=== PATIENT | female | born 1970 | race African-American/Black ===

== ENCOUNTER 2017-01-03 07:32 | Inpatient (IN) | payer MEDICAID, OTHER ==
[~2017-01-03] VITALS: Ht 175.3 cm; Wt 57.6 kg
[~2017-01-03 07:32] MED LIST: HIGH CHOLESTEROL; HTN; QUET200T PO
[2017-01-03 07:47] LABS: GLUCOSE,POINT OF CARE 96 MG/DL (70-110)
[2017-01-03] MEDS ORDERED: HALOPERIDOL 5 MG TABLET PO PRN (08:30)
[2017-01-03] MEDS ORDERED: ZOLPIDEM TARTRATE 10 MG TABLET PO PRN (08:30)
[2017-01-03 08:33] LABS: BASOPHILS # (AUTO) 0.05 K/uL (0.00-0.20); EOSINOPHILS # (AUTO) 0.05 K/uL (0.00-0.70); EOSINOPHILS % (AUTO) 0.95 % (1.0-6.0); HEMATOCRIT 40.1 % (36-46); HEMOGLOBIN 12.9 g/dL (12.0-16.0); LYMPHOCYTES # (AUTO) 1.5 K/uL (1.0-4.8); LYMPHOCYTES % (AUTO) 30.7 % (22.0-44.0); MEAN CORPUSCULAR HEMOGLOBIN 25.9 pg (26.0-34.0); MEAN CORPUSCULAR HGB CONC 32.1 G/dL (31.0-37.0); MEAN CORPUSCULAR VOLUME 81 fL (80-100); MONOCYTES # (AUTO) 0.3 K/uL (0.1-1.0); MONOCYTES % (AUTO) 6.5 % (2.0-9.0); NEUTROPHILS # (AUTO) 2.9 K/uL (1.8-7.7); NEUTROPHILS % (AUTO) 60.9 % (40.0-70.0); PLATELET COUNT (AUTO) 301 K/uL (150-450); RED BLOOD CELL COUNT(AUTO) 4.97 MIL/uL (4.00-5.20); RED CELL DISTRIBUTION WIDTH 14.1 % (11.5-14.5); WHITE BLOOD COUNT (AUTO) 4.8 K/uL (4.5-11.0)
[2017-01-03 08:48] LABS: ANION GAP 7 mmol/L (8-16); CALCIUM, TOTAL 9.1 mg/dL (8.8-10.5); CARBON DIOXIDE 29 mmol/L (22-29); CHLORIDE 105 mmol/L (98-107); CREATININE 1.05 mg/dL (0.60-1.30); GLOMERULAR FILTR. RATE CALC > 60 mL/min (>60); POTASSIUM 3.9 mmol/L (3.5-5.1); SODIUM SERUM 141 mmol/L (136-145); UREA NITROGEN, BLOOD 21 mg/dL (7-18)
[2017-01-03 08:52] LABS: ALANINE AMINOTRANSFERASE 25 U/L (12-78); ASPARTATE AMINOTRANSFERASE 22 U/L (15-37); BILIRUBIN,TOTAL 0.6 mg/dL (0.1-1.0); TOTAL PROTEIN, SERUM 7.5 g/dL (6.4-8.2)
[2017-01-03 10:22] VITALS: BP 169/94
[2017-01-03] MEDS: LISINOPRIL 10 MG TABLET PO SCH (11:23)
[2017-01-03] MEDS: NICOTINE 21 MG/24 HOUR PATCH TD SCH (11:28)
[2017-01-03] MEDS: QUEtiapine FUMARATE 100 MG TABLET PO SCH (20:20)
[2017-01-03 23:06] VITALS: BP 147/97
[2017-01-04 07:04] LABS: HEMOGLOBIN A1C 5.7 % (4.5-6.2)
[2017-01-04 07:13] LABS: CHOL/HDL RATIO 2.2 (3.9-5.7); MAGNESIUM 2.2 mg/dL (1.80-2.40); THYROID STIMULATING HORMONE 0.39 uIU/mL (0.36-3.74)
[2017-01-04 09:00] VITALS: BP 133/87
[2017-01-04] MEDS: LISINOPRIL 10 MG TABLET PO SCH (09:42)
[2017-01-04] MEDS: NICOTINE 21 MG/24 HOUR PATCH TD SCH (09:44)
[2017-01-04] MEDS ORDERED: ACETAMINOPHEN 325 MG TABLET PO PRN (11:30)
[2017-01-04] MEDS ORDERED: IBUPROFEN 600 MG TABLET PO PRN (11:30)
[2017-01-04] MEDS: MULTIVITAMINS WITH MINERALS, THERAPEUTIC TABLET PO SCH (12:11)
[2017-01-04 18:33] VITALS: BP 138/84
[2017-01-04] MEDS: QUEtiapine FUMARATE 100 MG TABLET PO SCH (20:44)
[2017-01-05 08:00] VITALS: BP 142/77
[2017-01-05] MEDS: MULTIVITAMINS WITH MINERALS, THERAPEUTIC TABLET PO SCH (08:39)
[2017-01-05] MEDS: NICOTINE 21 MG/24 HOUR PATCH TD SCH (08:39)
[2017-01-05] MEDS: LISINOPRIL 20 MG TABLET PO SCH (08:39)
[2017-01-05 10:47] LABS: HEPATITIS Bs ANTIGEN SCREEN P Negative (Negative); HEPATITIS C AB SCREEN <0.1 s/co ratio (0.0-0.9)
[2017-01-05] MEDS: LORazepam 2 MG TABLET PO PRN (17:25)
[2017-01-05 18:05] VITALS: BP 137/68
[2017-01-05] MEDS: QUEtiapine FUMARATE 100 MG TABLET PO SCH (20:28)
[2017-01-06 08:01] VITALS: BP 124/77
[2017-01-06] MEDS: LISINOPRIL 20 MG TABLET PO SCH (09:47)
[2017-01-06] MEDS: MULTIVITAMINS WITH MINERALS, THERAPEUTIC TABLET PO SCH (09:47)
[2017-01-06] MEDS: NICOTINE 21 MG/24 HOUR PATCH TD SCH (09:47)
[2017-01-06] MEDS: LORazepam 2 MG TABLET PO PRN (12:19)
[2017-01-06 16:44] VITALS: BP 128/77
[2017-01-06] MEDS: QUEtiapine FUMARATE 100 MG TABLET PO SCH (21:09)
[2017-01-07 09:00] VITALS: BP 146/90
[2017-01-07] MEDS: LISINOPRIL 20 MG TABLET PO SCH (09:16)
[2017-01-07] MEDS: NICOTINE 21 MG/24 HOUR PATCH TD SCH (09:17)
[2017-01-07] MEDS: MULTIVITAMINS WITH MINERALS, THERAPEUTIC TABLET PO SCH (10:52)
[2017-01-07] MEDS: LORazepam 2 MG TABLET PO PRN (12:25)
[2017-01-07] MEDS ORDERED: LISI-662 PO (13:59)
[2017-01-07] MEDS ORDERED: MV-M1TAB2 PO (13:59)
== END 2017-01-07 15:00 | disposition home or self-care (01) | DRG 751 ==
LOC: EMS 07:34 → 3EI 09:11
PROVIDERS: ADMIT Psychiatry & Neurology Child & Adolescent Psychiatry; ATTEND Psychiatry & Neurology Child & Adolescent Psychiatry
DX: F33.3 Major depressive disorder, recurrent, severe with psychotic symptoms (principal); R45.851 Suicidal ideations; F20.9 Schizophrenia, unspecified; I10 Essential (primary) hypertension; E78.00 Pure hypercholesterolemia, unspecified; F12.90 Cannabis use, unspecified, uncomplicated; F10.20 Alcohol dependence, uncomplicated; J45.909 Unspecified asthma, uncomplicated; Z72.0 Tobacco use; Z79.899 Other long term (current) drug therapy; Z83.49 Family history of other endocrine, nutritional and metabolic diseases; Z82.49 Family history of ischemic heart disease and other diseases of the circulatory system; Z84.89 Family history of other specified conditions
CPT/HCPCS: 80074; 82306; 82607; 82746; 82962; 83036; 83735; 84439; 84443; 86592; 99285; G0480

== ENCOUNTER 2019-05-03 16:28 | Emergency (ER) | payer MEDICAID ==
[~2019-05-03] VITALS: Ht 182.9 cm; Wt 79.5 kg
[~2019-05-03 16:28] MED LIST changes: +GABA-529 PO; -HIGH CHOLESTEROL; -HTN; +LISI-662 PO; +MICO1COM VG
[2019-05-03] MEDS ORDERED: NIFE10 PO (16:39)
[2019-05-03] MEDS ORDERED: HYDR25TA PO (16:39)
[2019-05-03 17:20] LABS: BASOPHILS % (AUTO) 0.5 % (0.0-2.0); EOSINOPHILS % (AUTO) 0.8 % (1.0-6.0); HEMATOCRIT 38.1 % (36-46); HEMOGLOBIN 12.3 g/dL (12.0-16.0); LYMPHOCYTES # (AUTO) 1.8 K/uL (1.0-4.8); LYMPHOCYTES % (AUTO) 30.2 % (22.0-44.0); MEAN CORPUSCULAR HEMOGLOBIN 25.2 pg (26.0-34.0); MEAN CORPUSCULAR HGB CONC 32.2 G/dL (31.0-37.0); MEAN CORPUSCULAR VOLUME 78 fL (80-100); MONOCYTES # (AUTO) 0.3 K/uL (0.1-1.0); MONOCYTES % (AUTO) 5.5 % (2.0-9.0); NEUTROPHILS # (AUTO) 3.8 K/uL (1.8-7.7); PLATELET COUNT (AUTO) 282 K/uL (150-450); RED BLOOD CELL COUNT(AUTO) 4.86 MIL/uL (4.00-5.20); RED CELL DISTRIBUTION WIDTH 15.8 % (11.5-14.5)
[2019-05-03 17:48] LABS: ALANINE AMINOTRANSFERASE 23 U/L (12-78); ALBUMIN 3.8 g/dL (3.4-5.0); ALKALINE PHOSPHATASE 124 U/L (46-116); ANION GAP 7 mmol/L (8-16); ASPARTATE AMINOTRANSFERASE 19 U/L (15-37); BILIRUBIN,TOTAL 0.6 mg/dL (0.1-1.0); CALCIUM, TOTAL 9.1 mg/dL (8.8-10.5); CARBON DIOXIDE 29 mmol/L (22-29); CHLORIDE 101 mmol/L (98-107); CREATININE 1.37 mg/dL (0.60-1.30); GLOMERULAR FILTR. RATE CALC 50 mL/min (>60); GLUCOSE,RANDOM 88 mg/dL (70-110); HCG,QUANTITATIVE 1 mIU/mL (0-6); SODIUM SERUM 137 mmol/L (136-145); TOTAL PROTEIN, SERUM 7.7 g/dL (6.4-8.2); UREA NITROGEN, BLOOD 14 mg/dL (7-18)
[2019-05-03 17:50] LABS: POTASSIUM 2.9 mmol/L (3.5-5.1)
[2019-05-03] MEDS ORDERED: SODIUM CHLORIDE 0.9% 1,000 ML IV ONE ×2 (18:45→20:00)
[2019-05-03] MEDS ORDERED: POTASSIUM CHLORIDE 20 MEQ ER TABLET PO ONE (18:45)
[2019-05-03] MEDS ORDERED: ACETAMINOPHEN 325 MG TABLET PO ONE (20:30)
[2019-05-03] MEDS ORDERED: POTASSIUM CHLORIDE 10 MEQ ER TABLET PO ONE (21:15)
[2019-05-03 22:18] VITALS: BP 110/80
== END 2019-05-03 22:30 | disposition home or self-care (01) ==
LOC: EMS 16:28
DX: R07.9 Chest pain, unspecified (principal); I10 Essential (primary) hypertension; E78.00 Pure hypercholesterolemia, unspecified; F31.9 Bipolar disorder, unspecified; J45.909 Unspecified asthma, uncomplicated; F20.9 Schizophrenia, unspecified; F15.90 Other stimulant use, unspecified, uncomplicated; F17.210 Nicotine dependence, cigarettes, uncomplicated
CPT/HCPCS: 36415; 80053; 84132; 84702; 85025; 93005; 99285; G0480; J7030

== ENCOUNTER 2019-06-24 19:47 | Emergency (ER) | payer MEDICAID ==
[~2019-06-24] VITALS: Ht 175.3 cm; Wt 72.7 kg
[~2019-06-24 19:47] MED LIST changes: +HYDR25TA PO; -MICO1COM VG; +NIFE10 PO
[2019-06-24 19:48] VITALS: BP 75/50
[2019-06-24] MEDS ORDERED: SODIUM CHLORIDE 0.9% 1,000 ML IV ONE (20:15)
[2019-06-24 20:18] LABS: BASOPHILS % (AUTO) 0.5 % (0.0-2.0); EOSINOPHILS % (AUTO) 0.4 % (1.0-6.0); HEMATOCRIT 36.9 % (36-46); HEMOGLOBIN 11.8 g/dL (12.0-16.0); LYMPHOCYTES # (AUTO) 2.2 K/uL (1.0-4.8); LYMPHOCYTES % (AUTO) 27.4 % (22.0-44.0); MEAN CORPUSCULAR HEMOGLOBIN 26.1 pg (26.0-34.0); MEAN CORPUSCULAR HGB CONC 31.9 G/dL (31.0-37.0); MEAN CORPUSCULAR VOLUME 82 fL (80-100); MONOCYTES # (AUTO) 0.5 K/uL (0.1-1.0); MONOCYTES % (AUTO) 6.2 % (2.0-9.0); NEUTROPHILS # (AUTO) 5.1 K/uL (1.8-7.7); NEUTROPHILS % (AUTO) 65.5 % (40.0-70.0); PLATELET COUNT (AUTO) 315 K/uL (150-450); RED BLOOD CELL COUNT(AUTO) 4.51 MIL/uL (4.00-5.20)
[2019-06-24] MEDS ORDERED: GABA-531 PO (20:25)
[2019-06-24 20:34] LABS: B-TYPE NATRIURETIC PEPTIDE 17 pg/mL (0-100)
[2019-06-24 20:35] LABS: AMMONIA 12 umol/L (11-32)
[2019-06-24 20:36] LABS: TROPONIN I < 0.02 ng/mL (0.00-0.05)
[2019-06-24 20:54] LABS: ALANINE AMINOTRANSFERASE 17 U/L (12-78); ALKALINE PHOSPHATASE 106 U/L (46-116); ANION GAP 10 mmol/L (8-16); ASPARTATE AMINOTRANSFERASE 15 U/L (15-37); BILIRUBIN,TOTAL 0.6 mg/dL (0.1-1.0); CALCIUM, TOTAL 9.4 mg/dL (8.8-10.5); CARBON DIOXIDE 25 mmol/L (22-29); CHLORIDE 104 mmol/L (98-107); CREATINE KINASE, TOTAL ONLY 210 U/L (26-192); CREATININE 2.24 mg/dL (0.60-1.30); GLOMERULAR FILTR. RATE CALC 28 mL/min (>60); GLUCOSE,RANDOM 121 mg/dL (70-110); SODIUM SERUM 139 mmol/L (136-145); TOTAL PROTEIN, SERUM 7.4 g/dL (6.4-8.2); UREA NITROGEN, BLOOD 13 mg/dL (7-18)
[2019-06-24 20:56] LABS: ACETAMINOPHEN < 2 mcg/mL (10-30); POTASSIUM 2.5 mmol/L (3.5-5.1)
[2019-06-24] MEDS ORDERED: POTASSIUM CHLORIDE 20 MEQ ER TABLET PO ONE ×2 (21:00)
== END 2019-06-24 22:00 | disposition left against medical advice (07) ==
LOC: EMS 19:48
DX: E87.6 Hypokalemia (principal); J45.909 Unspecified asthma, uncomplicated; F31.9 Bipolar disorder, unspecified; F20.9 Schizophrenia, unspecified; E78.00 Pure hypercholesterolemia, unspecified; F17.210 Nicotine dependence, cigarettes, uncomplicated; F19.90 Other psychoactive substance use, unspecified, uncomplicated; Z79.899 Other long term (current) drug therapy
CPT/HCPCS: 36415; 80053; 82140; 82550; 83880; 84484; 85025; 93005; 99285; G0480; J7030; G0481

== ENCOUNTER 2019-07-11 01:50 | Emergency (ER) | payer MEDICAID ==
[~2019-07-11] VITALS: Ht 182.9 cm; Wt 72.7 kg
[~2019-07-11 01:50] MED LIST changes: -GABA-529 PO; +GABA-531 PO
[2019-07-11] MEDS ORDERED: MIRT15 PO (02:11)
[2019-07-11] MEDS ORDERED: MIRTAZAPINE 15 MG TABLET PO ONE (07:30)
[2019-07-11] MEDS ORDERED: LISINOPRIL 10 MG TABLET PO ONE (07:30)
[2019-07-11] MEDS ORDERED: GABAPENTIN 100 MG CAPSULE PO ONE (07:30)
[2019-07-11] MEDS ORDERED: MIRTAZAPINE 30 MG TABLET PO ONE (07:30)
[2019-07-11 08:34] VITALS: BP 129/87
== END 2019-07-11 08:37 | disposition home or self-care (01) ==
LOC: EMS 01:51
DX: R06.00 Dyspnea, unspecified (principal); F41.9 Anxiety disorder, unspecified; I10 Essential (primary) hypertension; F20.9 Schizophrenia, unspecified; E78.00 Pure hypercholesterolemia, unspecified; J45.909 Unspecified asthma, uncomplicated; F31.9 Bipolar disorder, unspecified; F10.20 Alcohol dependence, uncomplicated; F17.210 Nicotine dependence, cigarettes, uncomplicated; F12.90 Cannabis use, unspecified, uncomplicated; Z79.899 Other long term (current) drug therapy
CPT/HCPCS: 99406

== ENCOUNTER 2019-09-18 19:15 | Emergency (ER) | payer MEDICAID ==
[~2019-09-18] VITALS: Ht 175.3 cm; Wt 76.4 kg
[~2019-09-18 19:15] MED LIST changes: +MIRT15 PO
[2019-09-18] MEDS ORDERED: MIRT30 PO (20:26)
[2019-09-18 20:34] LABS: GLUCOSE,POINT OF CARE 113 MG/DL (70-110)
[2019-09-18] MEDS ORDERED: SILVER SULFADIAZINE 1% 25 GM CREAM TP ONE (22:30)
[2019-09-18 23:04] VITALS: BP 137/89
== END 2019-09-18 23:05 | disposition home or self-care (01) ==
LOC: EMS 19:17
DX: T20.55XA Corrosion of first degree of scalp [any part], initial encounter (principal); T32.0 Corrosions involving less than 10% of body surface; E78.00 Pure hypercholesterolemia, unspecified; I10 Essential (primary) hypertension; J45.909 Unspecified asthma, uncomplicated; F31.9 Bipolar disorder, unspecified; F10.20 Alcohol dependence, uncomplicated; F20.9 Schizophrenia, unspecified; F17.210 Nicotine dependence, cigarettes, uncomplicated; F12.90 Cannabis use, unspecified, uncomplicated; Z79.899 Other long term (current) drug therapy; X08.8XXA Exposure to other specified smoke, fire and flames, initial encounter; Y93.89 Activity, other specified; Y92.89 Other specified places as the place of occurrence of the external cause; Y99.8 Other external cause status
CPT/HCPCS: 16020

== ENCOUNTER 2019-09-25 00:01 | Inpatient (IN) | payer MEDICAID ==
[~2019-09-25] VITALS: Ht 175.3 cm; Wt 68.5 kg
[~2019-09-25 00:01] MED LIST changes: -MIRT15 PO; +MIRT30 PO
[2019-09-25 02:06] LABS: BASOPHILS % (AUTO) 0.6 % (0.0-2.0); EOSINOPHILS % (AUTO) 0.6 % (1.0-6.0); HEMOGLOBIN 12.6 g/dL (12.0-16.0); LYMPHOCYTES # (AUTO) 3.1 K/uL (1.0-4.8); MEAN CORPUSCULAR HEMOGLOBIN 26.8 pg (26.0-34.0); MEAN CORPUSCULAR VOLUME 81 fL (80-100); MONOCYTES # (AUTO) 0.5 K/uL (0.1-1.0); MONOCYTES % (AUTO) 5.9 % (2.0-9.0); NEUTROPHILS # (AUTO) 5.3 K/uL (1.8-7.7); NEUTROPHILS % (AUTO) 58.9 % (40.0-70.0); PLATELET COUNT (AUTO) 415 K/uL (150-450); RED BLOOD CELL COUNT(AUTO) 4.68 MIL/uL (4.00-5.20); RED CELL DISTRIBUTION WIDTH 14.2 % (11.5-14.5)
[2019-09-25 02:14] LABS: ANION GAP 10 mmol/L (8-16); CALCIUM, TOTAL 9.4 mg/dL (8.8-10.5); CARBON DIOXIDE 29 mmol/L (22-29); CHLORIDE 103 mmol/L (98-107); CREATININE 1.73 mg/dL (0.60-1.30); GLOMERULAR FILTR. RATE CALC 38 mL/min (>60); GLUCOSE,RANDOM 111 mg/dL (70-110); POTASSIUM 3.1 mmol/L (3.5-5.1); SODIUM SERUM 142 mmol/L (136-145); UREA NITROGEN, BLOOD 17 mg/dL (7-18)
[2019-09-25 02:20] LABS: ALANINE AMINOTRANSFERASE 20 U/L (12-78); ALBUMIN 4.1 g/dL (3.4-5.0); ALKALINE PHOSPHATASE 102 U/L (46-116); ASPARTATE AMINOTRANSFERASE 23 U/L (15-37); BILIRUBIN,TOTAL 0.5 mg/dL (0.1-1.0); TOTAL PROTEIN, SERUM 7.7 g/dL (6.4-8.2)
[2019-09-25] MEDS ORDERED: ACETAMINOPHEN 325 MG TABLET PO ONE (06:30)
[2019-09-25 06:37] LABS: HCG,QUANTITATIVE 1 mIU/mL (0-6)
[2019-09-25 08:41] LABS: AMPHET/METH SCREEN,URINE POSITIVE (NEGATIVE); BARBITURATE SCREEN, URINE NEGATIVE (NEGATIVE); BENZODIAZEPINES SCREEN,URINE NEGATIVE (NEGATIVE); CANNABINOID SCREEN,URINE NEGATIVE (NEGATIVE); COCAINE SCREEN,URINE NEGATIVE (NEGATIVE); METHADONE SCREEN, URINE NEGATIVE (NEGATIVE); OPIATE SCREEN,URINE NEGATIVE (NEGATIVE)
[2019-09-25 08:42] LABS: PHENCYCLIDINE SCREEN,URINE NEGATIVE (NEGATIVE)
[2019-09-25] MEDS ORDERED: POTASSIUM CHLORIDE 20 MEQ ER TABLET PO ONE (09:00)
[2019-09-25] MEDS ORDERED: QUEtiapine FUMARATE 100 MG TABLET PO PRN (09:30)
[2019-09-25] MEDS ORDERED: ZOLPIDEM TARTRATE 10 MG TABLET PO PRN (09:30)
[2019-09-25 11:18] LABS: CALCIUM, TOTAL 9.2 mg/dL (8.8-10.5); CREATININE 1.46 mg/dL (0.60-1.30); POTASSIUM 3.3 mmol/L (3.5-5.1)
[2019-09-25 11:24] LABS: ALBUMIN 3.8 g/dL (3.4-5.0); BILIRUBIN,TOTAL 0.6 mg/dL (0.1-1.0); TOTAL PROTEIN, SERUM 7.3 g/dL (6.4-8.2)
[2019-09-25] MEDS ORDERED: INFLUENZA VIRUS VACCINE QVS 2019-20 (3YR+)/PF 60 MCG/0.5 ML SYRINGE IM ONE (12:00)
[2019-09-25] MEDS ORDERED: GABAPENTIN 100 MG CAPSULE PO SCH (13:00)
[2019-09-25 13:15] VITALS: BP 143/90
[2019-09-25] MEDS: LORazepam 2 MG TABLET PO PRN (13:54)
[2019-09-25] MEDS ORDERED: PROMETHAZINE HCL 25 MG TABLET PO PRN (16:30)
[2019-09-25] MEDS ORDERED: TUBERCULIN, PURIFIED PROTEIN DERIVATIVE 5 TU/0.1 ML SYRINGE ID ONE (16:30)
[2019-09-25] MEDS ORDERED: MAGNESIUM HYDROXIDE SUSPENSION 30 ML UDCUP PO PRN (16:30)
[2019-09-25] MEDS ORDERED: LOPERAMIDE HCL 2 MG CAPSULE PO PRN (16:30)
[2019-09-25] MEDS ORDERED: ACETAMINOPHEN 325 MG TABLET PO PRN (16:30)
[2019-09-25] MEDS ORDERED: HydrOXYzine PAMOATE 50 MG CAPSULE PO PRN (16:30)
[2019-09-25] MEDS ORDERED: GuaiFENesin/D-METHORPHAN [SUGAR-FREE] 200-20MG/10 ML SYRUP UDCUP PO PRN (16:30)
[2019-09-25] MEDS ORDERED: MAG HYDROX/AL HYDROX/SIMETH ES 30 ML SUSPENSION UDCUP PO PRN (16:30)
[2019-09-25] MEDS: GABAPENTIN 100 MG CAPSULE PO SCH (16:31)
[2019-09-25] MEDS ORDERED: NIFEdipine 10 MG CAPSULE PO SCH (17:00)
[2019-09-25] MEDS: BACITRACIN 28.4 GM OINTMENT TP SCH ×2 (17:47→17:56)
[2019-09-25] MEDS: THIAMINE HCL 100 MG TABLET PO SCH (17:47)
[2019-09-25] MEDS: MIRTAZAPINE 15 MG TABLET PO SCH (20:27)
[2019-09-25] MEDS ORDERED: QUEtiapine FUMARATE 200 MG TABLET PO SCH (21:00)
[2019-09-26 06:02] VITALS: BP 106/66
[2019-09-26 08:23] LABS: CHOL/HDL RATIO 3.8 (3.9-5.7); FREE T4 (FREE THYROXINE) 0.86 ng/dL (0.76-1.46); THYROID STIMULATING HORMONE 0.54 uIU/mL (0.36-3.74)
[2019-09-26 08:56] VITALS: BP 94/64
[2019-09-26] MEDS ORDERED: POTASSIUM CHLORIDE 20 MEQ ER TABLET PO ONE (09:00)
[2019-09-26] MEDS: GABAPENTIN 100 MG CAPSULE PO SCH ×3 (09:06→16:21)
[2019-09-26] MEDS: THIAMINE HCL 100 MG TABLET PO SCH ×2 (09:07→16:21)
[2019-09-26] MEDS: FOLIC ACID 1 MG TABLET PO SCH (09:07)
[2019-09-26] MEDS: NALTREXONE HCL 50 MG TABLET PO SCH (09:07)
[2019-09-26] MEDS: MULTIVITAMINS WITH MINERALS, THERAPEUTIC TABLET PO SCH (09:09)
[2019-09-26] MEDS: LISINOPRIL 20 MG TABLET PO SCH (09:09)
[2019-09-26] MEDS: HYDROCHLOROTHIAZIDE 25 MG TABLET PO SCH (09:09)
[2019-09-26] MEDS: NIFEdipine 30 MG ER TABLET PO SCH (09:11)
[2019-09-26] MEDS: NICOTINE 21 MG/24 HOUR PATCH TD SCH (09:17)
[2019-09-26] MEDS: BACITRACIN 28.4 GM OINTMENT TP SCH ×2 (09:55→16:21)
[2019-09-26 16:09] VITALS: BP 105/73
[2019-09-26] MEDS: GABAPENTIN 400 MG CAPSULE PO SCH (16:54)
[2019-09-26] MEDS: LORazepam 2 MG TABLET PO PRN (16:59)
[2019-09-26] MEDS: MIRTAZAPINE 15 MG TABLET PO SCH (20:53)
[2019-09-26] MEDS ORDERED: QUEtiapine FUMARATE 300 MG TABLET PO SCH (21:00)
[2019-09-27] VITALS: BP 116/74
[2019-09-27 08:54] VITALS: BP 121/74
[2019-09-27] MEDS: HYDROCHLOROTHIAZIDE 25 MG TABLET PO SCH (09:22)
[2019-09-27] MEDS: GABAPENTIN 400 MG CAPSULE PO SCH ×3 (09:22→16:25)
[2019-09-27] MEDS: NIFEdipine 30 MG ER TABLET PO SCH (09:22)
[2019-09-27] MEDS: MULTIVITAMINS WITH MINERALS, THERAPEUTIC TABLET PO SCH (09:22)
[2019-09-27] MEDS: FOLIC ACID 1 MG TABLET PO SCH (09:22)
[2019-09-27] MEDS: LISINOPRIL 20 MG TABLET PO SCH (09:22)
[2019-09-27] MEDS: THIAMINE HCL 100 MG TABLET PO SCH ×2 (09:22→16:25)
[2019-09-27] MEDS: NICOTINE 21 MG/24 HOUR PATCH TD SCH (09:23)
[2019-09-27] MEDS: BACITRACIN 28.4 GM OINTMENT TP SCH ×2 (09:23→16:26)
[2019-09-27] MEDS: NALTREXONE HCL 50 MG TABLET PO SCH (09:24)
[2019-09-27] MEDS: LORazepam 2 MG TABLET PO PRN (09:33)
[2019-09-27] MEDS: NYSTATIN 15 GM POWDER BOTTLE TP SCH ×3 (12:58→16:26)
[2019-09-27 16:18] VITALS: BP 147/78
[2019-09-27] MEDS ORDERED: QUEtiapine FUMARATE 200 MG TABLET PO SCH (21:00)
[2019-09-27] MEDS: MIRTAZAPINE 15 MG TABLET PO SCH (21:48)
[2019-09-28 06:29] VITALS: BP 126/63
[2019-09-28] MEDS: NICOTINE 21 MG/24 HOUR PATCH TD SCH (08:06)
[2019-09-28] MEDS: NALTREXONE HCL 50 MG TABLET PO SCH (08:08)
[2019-09-28] MEDS: NYSTATIN 15 GM POWDER BOTTLE TP SCH ×2 (08:08→16:52)
[2019-09-28] MEDS: BACITRACIN 28.4 GM OINTMENT TP SCH ×2 (08:08→16:52)
[2019-09-28] MEDS: LISINOPRIL 20 MG TABLET PO SCH (08:09)
[2019-09-28] MEDS: FOLIC ACID 1 MG TABLET PO SCH (08:09)
[2019-09-28] MEDS: NIFEdipine 30 MG ER TABLET PO SCH (08:09)
[2019-09-28] MEDS: HYDROCHLOROTHIAZIDE 25 MG TABLET PO SCH (08:09)
[2019-09-28] MEDS: THIAMINE HCL 100 MG TABLET PO SCH ×2 (08:09→16:47)
[2019-09-28] MEDS: MULTIVITAMINS WITH MINERALS, THERAPEUTIC TABLET PO SCH (08:09)
[2019-09-28] MEDS: GABAPENTIN 300 MG CAPSULE PO SCH ×3 (08:09→16:48)
[2019-09-28 08:15] VITALS: BP 121/69
[2019-09-28] MEDS: LORazepam 2 MG TABLET PO PRN (10:15)
[2019-09-28] MEDS: MIRTAZAPINE 15 MG TABLET PO SCH (20:58)
[2019-09-28] MEDS ORDERED: QUEtiapine FUMARATE 300 MG TABLET PO SCH (21:00)
[2019-09-29 07:00] VITALS: BP 107/65
[2019-09-29 08:30] VITALS: BP 124/71
[2019-09-29] MEDS: LISINOPRIL 20 MG TABLET PO SCH (08:41)
[2019-09-29] MEDS: NALTREXONE HCL 50 MG TABLET PO SCH (08:41)
[2019-09-29] MEDS: HYDROCHLOROTHIAZIDE 25 MG TABLET PO SCH (08:41)
[2019-09-29] MEDS: GABAPENTIN 300 MG CAPSULE PO SCH ×2 (08:41→13:08)
[2019-09-29] MEDS: NIFEdipine 30 MG ER TABLET PO SCH (08:41)
[2019-09-29] MEDS: NYSTATIN 15 GM POWDER BOTTLE TP SCH ×2 (08:41→17:04)
[2019-09-29] MEDS: NICOTINE 21 MG/24 HOUR PATCH TD SCH (08:41)
[2019-09-29] MEDS: FOLIC ACID 1 MG TABLET PO SCH (08:41)
[2019-09-29] MEDS: THIAMINE HCL 100 MG TABLET PO SCH ×2 (08:41→17:04)
[2019-09-29] MEDS: MULTIVITAMINS WITH MINERALS, THERAPEUTIC TABLET PO SCH (08:41)
[2019-09-29] MEDS: BACITRACIN 28.4 GM OINTMENT TP SCH ×2 (08:42→17:04)
[2019-09-29] MEDS: LORazepam 2 MG TABLET PO PRN (13:08)
[2019-09-29 16:46] VITALS: BP 135/80
[2019-09-29] MEDS: GABAPENTIN 400 MG CAPSULE PO SCH (17:04)
[2019-09-29] MEDS: MIRTAZAPINE 15 MG TABLET PO SCH (20:34)
[2019-09-29] MEDS: QUEtiapine FUMARATE 200 MG TABLET PO SCH (20:34)
[2019-09-30 06:31] VITALS: BP 128/77
[2019-09-30 08:24] VITALS: BP 113/70
[2019-09-30] MEDS: GABAPENTIN 400 MG CAPSULE PO SCH ×3 (09:28→18:12)
[2019-09-30] MEDS: FOLIC ACID 1 MG TABLET PO SCH (09:28)
[2019-09-30] MEDS: HYDROCHLOROTHIAZIDE 25 MG TABLET PO SCH (09:30)
[2019-09-30] MEDS: MULTIVITAMINS WITH MINERALS, THERAPEUTIC TABLET PO SCH (09:30)
[2019-09-30] MEDS: LISINOPRIL 20 MG TABLET PO SCH (09:31)
[2019-09-30] MEDS: THIAMINE HCL 100 MG TABLET PO SCH ×2 (09:31→18:12)
[2019-09-30] MEDS: NALTREXONE HCL 50 MG TABLET PO SCH (09:31)
[2019-09-30] MEDS: NICOTINE 21 MG/24 HOUR PATCH TD SCH (09:46)
[2019-09-30] MEDS: NYSTATIN 15 GM POWDER BOTTLE TP SCH ×2 (09:46→18:13)
[2019-09-30] MEDS: BACITRACIN 28.4 GM OINTMENT TP SCH ×2 (09:46→18:14)
[2019-09-30] MEDS: NIFEdipine 30 MG ER TABLET PO SCH (09:48)
[2019-09-30 16:45] VITALS: BP 113/68
[2019-09-30] MEDS: QUEtiapine FUMARATE 200 MG TABLET PO SCH (20:52)
[2019-09-30] MEDS: MIRTAZAPINE 15 MG TABLET PO SCH (20:53)
[2019-10-01 03:57] VITALS: BP 126/79
[2019-10-01 08:40] VITALS: BP 106/64
[2019-10-01] MEDS: NYSTATIN 15 GM POWDER BOTTLE TP SCH ×2 (08:41→16:34)
[2019-10-01] MEDS: BACITRACIN 28.4 GM OINTMENT TP SCH ×2 (08:42→16:34)
[2019-10-01] MEDS: LISINOPRIL 20 MG TABLET PO SCH (08:42)
[2019-10-01] MEDS: FOLIC ACID 1 MG TABLET PO SCH (08:42)
[2019-10-01] MEDS: GABAPENTIN 400 MG CAPSULE PO SCH ×3 (08:42→16:32)
[2019-10-01] MEDS: HYDROCHLOROTHIAZIDE 25 MG TABLET PO SCH (08:42)
[2019-10-01] MEDS: THIAMINE HCL 100 MG TABLET PO SCH ×2 (08:42→16:33)
[2019-10-01] MEDS: MULTIVITAMINS WITH MINERALS, THERAPEUTIC TABLET PO SCH (08:42)
[2019-10-01] MEDS: NIFEdipine 30 MG ER TABLET PO SCH (08:42)
[2019-10-01] MEDS: NALTREXONE HCL 50 MG TABLET PO SCH (08:46)
[2019-10-01] MEDS: NICOTINE 21 MG/24 HOUR PATCH TD SCH (08:55)
[2019-10-01] MEDS: LORazepam 2 MG TABLET PO PRN (08:59)
[2019-10-01 16:32] VITALS: BP 122/85
[2019-10-01] MEDS: MIRTAZAPINE 15 MG TABLET PO SCH (20:04)
[2019-10-01] MEDS ORDERED: QUEtiapine FUMARATE 200 MG TABLET PO SCH (21:00)
[2019-10-02 03:47] VITALS: BP 127/75
[2019-10-02] MEDS: THIAMINE HCL 100 MG TABLET PO SCH ×2 (08:07→16:19)
[2019-10-02] MEDS: NIFEdipine 30 MG ER TABLET PO SCH (08:07)
[2019-10-02] MEDS: GABAPENTIN 400 MG CAPSULE PO SCH ×3 (08:07→16:19)
[2019-10-02] MEDS: LISINOPRIL 20 MG TABLET PO SCH (08:07)
[2019-10-02] MEDS: NALTREXONE HCL 50 MG TABLET PO SCH (08:07)
[2019-10-02] MEDS: MULTIVITAMINS WITH MINERALS, THERAPEUTIC TABLET PO SCH (08:07)
[2019-10-02] MEDS: FOLIC ACID 1 MG TABLET PO SCH (08:07)
[2019-10-02] MEDS: NICOTINE 21 MG/24 HOUR PATCH TD SCH (08:08)
[2019-10-02] MEDS: BACITRACIN 28.4 GM OINTMENT TP SCH ×2 (08:08→16:19)
[2019-10-02] MEDS: NYSTATIN 15 GM POWDER BOTTLE TP SCH ×2 (08:08→16:19)
[2019-10-02] MEDS: HYDROCHLOROTHIAZIDE 25 MG TABLET PO SCH (08:08)
[2019-10-02] MEDS: LORazepam 2 MG TABLET PO PRN ×2 (08:15→16:19)
[2019-10-02 08:23] VITALS: BP 122/74
[2019-10-02 16:23] VITALS: BP 143/87
[2019-10-02] MEDS ORDERED: HYPROMELLOSE 0.5% 15 ML OPHTHALMIC SOLUTION OU PRN (20:15)
[2019-10-02] MEDS: MIRTAZAPINE 15 MG TABLET PO SCH (20:46)
[2019-10-02] MEDS ORDERED: QUEtiapine FUMARATE 300 MG TABLET PO SCH (21:00)
[2019-10-03] MEDS: LORazepam 2 MG TABLET PO PRN ×2 (05:21→17:11)
[2019-10-03] MEDS: MULTIVITAMINS WITH MINERALS, THERAPEUTIC TABLET PO SCH (08:31)
[2019-10-03] MEDS: LISINOPRIL 20 MG TABLET PO SCH (08:31)
[2019-10-03] MEDS: NIFEdipine 30 MG ER TABLET PO SCH (08:32)
[2019-10-03] MEDS: HYDROCHLOROTHIAZIDE 25 MG TABLET PO SCH (08:32)
[2019-10-03] MEDS: NALTREXONE HCL 50 MG TABLET PO SCH (08:32)
[2019-10-03] MEDS: GABAPENTIN 400 MG CAPSULE PO SCH ×3 (08:32→17:11)
[2019-10-03] MEDS: FOLIC ACID 1 MG TABLET PO SCH (08:32)
[2019-10-03] MEDS: THIAMINE HCL 100 MG TABLET PO SCH ×2 (08:32→17:11)
[2019-10-03] MEDS: NICOTINE 21 MG/24 HOUR PATCH TD SCH (08:33)
[2019-10-03 08:35] VITALS: BP 129/79
[2019-10-03] MEDS: NYSTATIN 15 GM POWDER BOTTLE TP SCH ×2 (08:42→17:11)
[2019-10-03] MEDS: BACITRACIN 28.4 GM OINTMENT TP SCH ×2 (08:43→17:00)
[2019-10-03 16:33] VITALS: BP 123/73
[2019-10-03] MEDS: MIRTAZAPINE 15 MG TABLET PO SCH (20:49)
[2019-10-03] MEDS ORDERED: QUEtiapine FUMARATE 200 MG TABLET PO SCH ×2 (21:00)
[2019-10-04 04:33] LABS: HIV 1-2 SCREEN 4TH GEN W/RFLX Non Reactive (Non Reactive)
[2019-10-04 06:39] VITALS: BP 108/75
[2019-10-04] MEDS: NICOTINE 21 MG/24 HOUR PATCH TD SCH (07:58)
[2019-10-04] MEDS: LISINOPRIL 20 MG TABLET PO SCH (07:58)
[2019-10-04] MEDS: NIFEdipine 30 MG ER TABLET PO SCH (07:58)
[2019-10-04] MEDS: GABAPENTIN 400 MG CAPSULE PO SCH ×3 (07:58→16:25)
[2019-10-04] MEDS: FOLIC ACID 1 MG TABLET PO SCH (07:58)
[2019-10-04] MEDS: THIAMINE HCL 100 MG TABLET PO SCH ×2 (07:58→16:25)
[2019-10-04] MEDS: MULTIVITAMINS WITH MINERALS, THERAPEUTIC TABLET PO SCH (07:58)
[2019-10-04] MEDS: NALTREXONE HCL 50 MG TABLET PO SCH (07:58)
[2019-10-04] MEDS: BACITRACIN 28.4 GM OINTMENT TP SCH (07:59)
[2019-10-04] MEDS: NYSTATIN 15 GM POWDER BOTTLE TP SCH (07:59)
[2019-10-04] MEDS: HYDROCHLOROTHIAZIDE 25 MG TABLET PO SCH (07:59)
[2019-10-04 08:14] VITALS: BP 113/76
[2019-10-04] MEDS ORDERED: MIRT15 PO (12:38)
[2019-10-04] MEDS ORDERED: NALT50TA PO (12:38)
[2019-10-04] MEDS ORDERED: QUET200T29 PO (12:38)
[2019-10-04] MEDS ORDERED: GABA-533 PO (12:38)
[2019-10-04] MEDS ORDERED: HYDR25TA PO (13:32)
[2019-10-04] MEDS ORDERED: MULT-1239 PO (13:32)
[2019-10-04] MEDS ORDERED: FOLI1 PO (13:32)
[2019-10-04] MEDS ORDERED: NIFE30TA5 PO (13:32)
[2019-10-04] MEDS ORDERED: NYST15PO3 TP (13:35)
[2019-10-04] MEDS ORDERED: BACI30OI10 TP (13:35)
[2019-10-04 17:02] VITALS: BP 138/75
== END 2019-10-04 17:00 | disposition home or self-care (01) | DRG 750 ==
LOC: EMS 00:13 → B3A 11:51
PROVIDERS: ADMIT Psychiatry & Neurology Psychiatry; ATTEND Psychiatry & Neurology Psychiatry
DX: F25.9 Schizoaffective disorder, unspecified (principal); R45.851 Suicidal ideations; E11.9 Type 2 diabetes mellitus without complications; E78.00 Pure hypercholesterolemia, unspecified; E78.5 Hyperlipidemia, unspecified; E87.6 Hypokalemia; F15.90 Other stimulant use, unspecified, uncomplicated; I10 Essential (primary) hypertension; J45.909 Unspecified asthma, uncomplicated; Z79.899 Other long term (current) drug therapy; F17.200 Nicotine dependence, unspecified, uncomplicated; F12.90 Cannabis use, unspecified, uncomplicated; Z91.19 Patient's noncompliance with other medical treatment and regimen; Z91.5 Personal history of self-harm
CPT/HCPCS: 70450; 80074; 83036; 84132; 84439; 84443; 87081; 87389; G0480

== ENCOUNTER 2020-01-08 23:06 | Emergency (ER) | payer MEDICAID ==
[~2020-01-08] VITALS: Ht 182.9 cm; Wt 68.2 kg
[~2020-01-08 23:06] MED LIST changes: -GABA-531 PO; +HYDR-1475 PO; -HYDR25TA PO; -LISI-662 PO; -MIRT30 PO; -NIFE10 PO; +NIFE30TA5 PO; -QUET200T PO
[2020-01-08 23:11] VITALS: BP 173/123
[2020-01-08] MEDS ORDERED: GABA-529 PO (23:17)
[2020-01-08] MEDS ORDERED: QUET200T PO (23:17)
[2020-01-08 23:26] LABS: GLUCOSE,POINT OF CARE 114 MG/DL (70-110)
[2020-01-09] MEDS ORDERED: HYDR-1475 PO (14:00)
[2020-01-09] MEDS ORDERED: LISI-662 PO (14:14)
== END 2020-01-09 00:54 | disposition left against medical advice (07) ==
LOC: EMS 23:06
DX: S01.90XA Unspecified open wound of unspecified part of head, initial encounter (principal); Z53.21 Procedure and treatment not carried out due to patient leaving prior to being seen by health care provider; X58.XXXA Exposure to other specified factors, initial encounter; Y93.89 Activity, other specified; Y92.89 Other specified places as the place of occurrence of the external cause; Y99.8 Other external cause status

== ENCOUNTER 2020-01-09 11:11 | Inpatient (IN) | payer MEDICAID ==
[~2020-01-09] VITALS: Ht 182.9 cm; Wt 67.1 kg
[~2020-01-09 11:11] MED LIST changes: +GABA-529 PO; -HYDR-1475 PO; -NIFE30TA5 PO; +QUET200T PO
[2020-01-09] MEDS ORDERED: HYDR-1475 PO (14:00)
[2020-01-09] MEDS ORDERED: LISI-662 PO (14:14)
[2020-01-09] MEDS ORDERED: LORazepam 2 MG TABLET PO ONE (14:30)
[2020-01-09] MEDS ORDERED: QUEtiapine FUMARATE 100 MG TABLET PO PRN (15:15)
[2020-01-09] MEDS ORDERED: MAG HYDROX/AL HYDROX/SIMETH ES 30 ML SUSPENSION UDCUP PO PRN (15:15)
[2020-01-09] MEDS ORDERED: MAGNESIUM HYDROXIDE SUSPENSION 30 ML UDCUP PO PRN (15:15)
[2020-01-09] MEDS ORDERED: ACETAMINOPHEN 325 MG TABLET PO PRN (15:15)
[2020-01-09] MEDS ORDERED: PROMETHAZINE HCL 25 MG TABLET PO PRN (15:15)
[2020-01-09] MEDS ORDERED: CYANOCOBALAMIN 1,000 MCG/ML VIAL IM ONE (15:15)
[2020-01-09] MEDS ORDERED: HydrOXYzine PAMOATE 50 MG CAPSULE PO PRN (15:15)
[2020-01-09] MEDS ORDERED: GuaiFENesin/D-METHORPHAN [SUGAR-FREE] 200-20MG/10 ML SYRUP UDCUP PO PRN (15:15)
[2020-01-09] MEDS ORDERED: ZOLPIDEM TARTRATE 10 MG TABLET PO PRN (15:15)
[2020-01-09] MEDS ORDERED: LORazepam 2 MG TABLET PO PRN (15:15)
[2020-01-09] MEDS ORDERED: LOPERAMIDE HCL 2 MG CAPSULE PO PRN (15:15)
[2020-01-09 15:34] LABS: BASOPHILS % (AUTO) 0.7 % (0.0-2.0); EOSINOPHILS % (AUTO) 0.8 % (1.0-6.0); HEMATOCRIT 40.4 % (36-46); HEMOGLOBIN 13.2 g/dL (12.0-16.0); LYMPHOCYTES # (AUTO) 2.3 K/uL (1.0-4.8); LYMPHOCYTES % (AUTO) 29.4 % (22.0-44.0); MEAN CORPUSCULAR HGB CONC 32.6 G/dL (31.0-37.0); MEAN CORPUSCULAR VOLUME 80 fL (80-100); MONOCYTES # (AUTO) 0.5 K/uL (0.1-1.0); MONOCYTES % (AUTO) 5.8 % (2.0-9.0); NEUTROPHILS % (AUTO) 63.3 % (40.0-70.0); PLATELET COUNT (AUTO) 430 K/uL (150-450); RED BLOOD CELL COUNT(AUTO) 5.07 MIL/uL (4.00-5.20)
[2020-01-09 15:51] LABS: ANION GAP 10 mmol/L (8-16); CALCIUM, TOTAL 9.9 mg/dL (8.8-10.5); CARBON DIOXIDE 28 mmol/L (22-29); CHLORIDE 101 mmol/L (98-107); CREATININE 1.22 mg/dL (0.60-1.30); GLOMERULAR FILTR. RATE CALC 57 mL/min (>60); GLUCOSE,RANDOM 114 mg/dL (70-110); POTASSIUM 3.4 mmol/L (3.5-5.1); SODIUM SERUM 139 mmol/L (136-145); UREA NITROGEN, BLOOD 9 mg/dL (7-18)
[2020-01-09 15:58] LABS: ALANINE AMINOTRANSFERASE 23 U/L (12-78); ALBUMIN 4.2 g/dL (3.4-5.0); ALKALINE PHOSPHATASE 116 U/L (46-116); ASPARTATE AMINOTRANSFERASE 20 U/L (15-37); BILIRUBIN,TOTAL 0.8 mg/dL (0.1-1.0); TOTAL PROTEIN, SERUM 7.9 g/dL (6.4-8.2)
[2020-01-09] MEDS: GABAPENTIN 300 MG CAPSULE PO SCH (17:34)
[2020-01-09] MEDS: THIAMINE HCL 100 MG TABLET PO SCH (17:34)
[2020-01-09] MEDS ORDERED: QUEtiapine FUMARATE 200 MG TABLET PO SCH (21:00)
[2020-01-09 22:27] VITALS: BP 145/92
[2020-01-10 08:00] VITALS: BP 124/62
[2020-01-10] MEDS: HYDROCHLOROTHIAZIDE 25 MG TABLET PO SCH (08:29)
[2020-01-10] MEDS: THIAMINE HCL 100 MG TABLET PO SCH ×2 (08:29→16:35)
[2020-01-10] MEDS: LISINOPRIL 20 MG TABLET PO SCH (08:30)
[2020-01-10] MEDS: GABAPENTIN 300 MG CAPSULE PO SCH ×3 (08:30→16:35)
[2020-01-10] MEDS: FOLIC ACID 1 MG TABLET PO SCH (08:30)
[2020-01-10] MEDS: BACITRACIN 28.4 GM OINTMENT TP SCH ×2 (08:30→16:59)
[2020-01-10] MEDS: MULTIVITAMINS WITH MINERALS, THERAPEUTIC TABLET PO SCH (08:30)
[2020-01-10] MEDS: NALTREXONE HCL 50 MG TABLET PO SCH (08:30)
[2020-01-10] MEDS: NICOTINE 14 MG/24 HOUR PATCH TD SCH (08:31)
[2020-01-10] MEDS ORDERED: POTASSIUM CHLORIDE 10 MEQ ER TABLET PO ONE (15:45)
[2020-01-10 17:57] VITALS: BP 123/84
[2020-01-10] MEDS ORDERED: QUEtiapine FUMARATE 200 MG TABLET PO SCH (21:00)
[2020-01-11] MEDS: FOLIC ACID 1 MG TABLET PO SCH (08:46)
[2020-01-11] MEDS: HYDROCHLOROTHIAZIDE 25 MG TABLET PO SCH (08:46)
[2020-01-11] MEDS: GABAPENTIN 300 MG CAPSULE PO SCH ×3 (08:46→16:43)
[2020-01-11] MEDS: NICOTINE 14 MG/24 HOUR PATCH TD SCH (08:46)
[2020-01-11] MEDS: MULTIVITAMINS WITH MINERALS, THERAPEUTIC TABLET PO SCH (08:46)
[2020-01-11] MEDS: LISINOPRIL 20 MG TABLET PO SCH (08:46)
[2020-01-11] MEDS: THIAMINE HCL 100 MG TABLET PO SCH ×2 (08:46→16:43)
[2020-01-11] MEDS: NALTREXONE HCL 50 MG TABLET PO SCH (08:46)
[2020-01-11] MEDS: BACITRACIN 28.4 GM OINTMENT TP SCH ×2 (08:47→16:44)
[2020-01-11 09:43] VITALS: BP 116/61
[2020-01-11 20:58] VITALS: BP 90/60
[2020-01-11] MEDS ORDERED: QUEtiapine FUMARATE 300 MG TABLET PO SCH (21:00)
[2020-01-12 08:27] VITALS: BP 114/71
[2020-01-12] MEDS: LISINOPRIL 20 MG TABLET PO SCH (08:36)
[2020-01-12] MEDS: FOLIC ACID 1 MG TABLET PO SCH (08:36)
[2020-01-12] MEDS: THIAMINE HCL 100 MG TABLET PO SCH ×2 (08:36→16:17)
[2020-01-12] MEDS: HYDROCHLOROTHIAZIDE 25 MG TABLET PO SCH (08:36)
[2020-01-12] MEDS: GABAPENTIN 300 MG CAPSULE PO SCH ×3 (08:36→16:17)
[2020-01-12] MEDS: MULTIVITAMINS WITH MINERALS, THERAPEUTIC TABLET PO SCH (08:36)
[2020-01-12] MEDS: NALTREXONE HCL 50 MG TABLET PO SCH (08:37)
[2020-01-12] MEDS: NICOTINE 14 MG/24 HOUR PATCH TD SCH (08:40)
[2020-01-12] MEDS: BACITRACIN 28.4 GM OINTMENT TP SCH ×2 (08:41→16:17)
[2020-01-12 20:07] VITALS: BP 139/88
[2020-01-12] MEDS: MIRTAZAPINE 15 MG TABLET PO SCH (20:36)
[2020-01-12] MEDS: QUEtiapine FUMARATE 200 MG TABLET PO SCH (20:36)
[2020-01-12] MEDS: DIVALPROEX SODIUM 500 MG ER TABLET PO SCH (20:36)
[2020-01-12] MEDS: AMITRIPTYLINE HCL 10 MG TABLET PO SCH (20:37)
[2020-01-13 08:35] VITALS: BP 122/69
[2020-01-13] MEDS: MULTIVITAMINS WITH MINERALS, THERAPEUTIC TABLET PO SCH (09:13)
[2020-01-13] MEDS: HYDROCHLOROTHIAZIDE 25 MG TABLET PO SCH (09:13)
[2020-01-13] MEDS: GABAPENTIN 300 MG CAPSULE PO SCH ×3 (09:13→16:34)
[2020-01-13] MEDS: THIAMINE HCL 100 MG TABLET PO SCH ×2 (09:13→16:34)
[2020-01-13] MEDS: FOLIC ACID 1 MG TABLET PO SCH (09:13)
[2020-01-13] MEDS: NALTREXONE HCL 50 MG TABLET PO SCH (09:13)
[2020-01-13] MEDS: LISINOPRIL 20 MG TABLET PO SCH (09:13)
[2020-01-13] MEDS: NICOTINE 14 MG/24 HOUR PATCH TD SCH (09:19)
[2020-01-13] MEDS: BACITRACIN 28.4 GM OINTMENT TP SCH ×2 (13:15→16:35)
[2020-01-13 17:01] VITALS: BP 128/73
[2020-01-13] MEDS: QUEtiapine FUMARATE 200 MG TABLET PO SCH (20:57)
[2020-01-13] MEDS: MIRTAZAPINE 15 MG TABLET PO SCH (20:57)
[2020-01-13] MEDS: AMITRIPTYLINE HCL 10 MG TABLET PO SCH (20:57)
[2020-01-13] MEDS: DIVALPROEX SODIUM 500 MG ER TABLET PO SCH (20:57)
[2020-01-14] MEDS: HYDROCHLOROTHIAZIDE 25 MG TABLET PO SCH (09:40)
[2020-01-14] MEDS: NALTREXONE HCL 50 MG TABLET PO SCH (09:40)
[2020-01-14] MEDS: LISINOPRIL 20 MG TABLET PO SCH (09:40)
[2020-01-14] MEDS: FOLIC ACID 1 MG TABLET PO SCH (09:40)
[2020-01-14] MEDS: MULTIVITAMINS WITH MINERALS, THERAPEUTIC TABLET PO SCH (09:40)
[2020-01-14] MEDS: GABAPENTIN 300 MG CAPSULE PO SCH ×3 (09:40→16:25)
[2020-01-14] MEDS: THIAMINE HCL 100 MG TABLET PO SCH ×2 (09:40→16:25)
[2020-01-14 09:46] VITALS: BP 130/71
[2020-01-14] MEDS: BACITRACIN 28.4 GM OINTMENT TP SCH ×2 (09:48→16:26)
[2020-01-14] MEDS: NICOTINE 14 MG/24 HOUR PATCH TD SCH (09:48)
[2020-01-14] MEDS: TERBINAFINE HCL 1% 30 GM CREAM TP SCH (18:32)
[2020-01-14 19:34] VITALS: BP 125/70
[2020-01-14] MEDS: DIVALPROEX SODIUM 500 MG ER TABLET PO SCH (20:40)
[2020-01-14] MEDS: MIRTAZAPINE 15 MG TABLET PO SCH (20:40)
[2020-01-14] MEDS: QUEtiapine FUMARATE 200 MG TABLET PO SCH (20:40)
[2020-01-14] MEDS: AMITRIPTYLINE HCL 10 MG TABLET PO SCH (20:41)
[2020-01-15] MEDS: NALTREXONE HCL 50 MG TABLET PO SCH (09:19)
[2020-01-15] MEDS: NICOTINE 14 MG/24 HOUR PATCH TD SCH (09:19)
[2020-01-15] MEDS: LISINOPRIL 20 MG TABLET PO SCH (09:19)
[2020-01-15] MEDS: FOLIC ACID 1 MG TABLET PO SCH (09:19)
[2020-01-15] MEDS: GABAPENTIN 300 MG CAPSULE PO SCH ×3 (09:20→16:32)
[2020-01-15] MEDS: MULTIVITAMINS WITH MINERALS, THERAPEUTIC TABLET PO SCH (09:20)
[2020-01-15] MEDS: THIAMINE HCL 100 MG TABLET PO SCH ×2 (09:21→16:32)
[2020-01-15] MEDS: HYDROCHLOROTHIAZIDE 25 MG TABLET PO SCH (09:21)
[2020-01-15 09:24] VITALS: BP 127/80
[2020-01-15] MEDS: TERBINAFINE HCL 1% 30 GM CREAM TP SCH ×2 (09:28→16:33)
[2020-01-15] MEDS: BACITRACIN 28.4 GM OINTMENT TP SCH ×2 (09:28→16:32)
[2020-01-15 16:41] VITALS: BP 118/52
[2020-01-15] MEDS: QUEtiapine FUMARATE 200 MG TABLET PO SCH (21:03)
[2020-01-15] MEDS: MIRTAZAPINE 30 MG TABLET PO SCH (21:04)
[2020-01-15] MEDS: DIVALPROEX SODIUM 500 MG ER TABLET PO SCH (21:04)
[2020-01-15] MEDS: AMITRIPTYLINE HCL 10 MG TABLET PO SCH (21:04)
[2020-01-16] MEDS: NALTREXONE HCL 50 MG TABLET PO SCH (09:50)
[2020-01-16] MEDS: NICOTINE 14 MG/24 HOUR PATCH TD SCH (09:50)
[2020-01-16] MEDS: THIAMINE HCL 100 MG TABLET PO SCH ×2 (09:51→16:14)
[2020-01-16] MEDS: MULTIVITAMINS WITH MINERALS, THERAPEUTIC TABLET PO SCH (09:51)
[2020-01-16] MEDS: FOLIC ACID 1 MG TABLET PO SCH (09:51)
[2020-01-16] MEDS: GABAPENTIN 400 MG CAPSULE PO SCH ×3 (09:51→16:14)
[2020-01-16] MEDS: HYDROCHLOROTHIAZIDE 25 MG TABLET PO SCH (09:53)
[2020-01-16] MEDS: LISINOPRIL 20 MG TABLET PO SCH (09:53)
[2020-01-16] MEDS: BACITRACIN 28.4 GM OINTMENT TP SCH ×2 (10:02→16:15)
[2020-01-16] MEDS: TERBINAFINE HCL 1% 30 GM CREAM TP SCH ×2 (10:02→16:15)
[2020-01-16 16:53] VITALS: BP 119/80
[2020-01-16] MEDS: MIRTAZAPINE 30 MG TABLET PO SCH (20:15)
[2020-01-16] MEDS: QUEtiapine FUMARATE 200 MG TABLET PO SCH (20:15)
[2020-01-16] MEDS: DIVALPROEX SODIUM 500 MG ER TABLET PO SCH (20:16)
[2020-01-16] MEDS ORDERED: AMITRIPTYLINE HCL 10 MG TABLET PO SCH (21:00)
[2020-01-17] MEDS: GABAPENTIN 300 MG CAPSULE PO SCH ×3 (08:09→16:57)
[2020-01-17] MEDS: THIAMINE HCL 100 MG TABLET PO SCH ×2 (08:09→16:51)
[2020-01-17] MEDS: FOLIC ACID 1 MG TABLET PO SCH (08:09)
[2020-01-17] MEDS: MULTIVITAMINS WITH MINERALS, THERAPEUTIC TABLET PO SCH (08:10)
[2020-01-17] MEDS: BACITRACIN 28.4 GM OINTMENT TP SCH ×2 (08:10→16:52)
[2020-01-17] MEDS: NALTREXONE HCL 50 MG TABLET PO SCH (08:10)
[2020-01-17] MEDS: TERBINAFINE HCL 1% 30 GM CREAM TP SCH ×2 (08:10→16:52)
[2020-01-17] MEDS: NICOTINE 14 MG/24 HOUR PATCH TD SCH (08:10)
[2020-01-17] MEDS: LISINOPRIL 20 MG TABLET PO SCH (08:12)
[2020-01-17] MEDS: HYDROCHLOROTHIAZIDE 25 MG TABLET PO SCH (08:12)
[2020-01-17 08:41] VITALS: BP 131/98
[2020-01-17] MEDS ORDERED: AMIT10TA6 PO (12:09)
[2020-01-17] MEDS ORDERED: GABA-531 PO (12:09)
[2020-01-17] MEDS ORDERED: DIVA500T52 PO (12:09)
[2020-01-17] MEDS ORDERED: QUET200T29 PO (12:09)
[2020-01-17] MEDS ORDERED: NALT50TA PO (12:09)
[2020-01-17] MEDS ORDERED: MIRT30 PO (12:09)
[2020-01-17] MEDS ORDERED: HYDR-1475 PO (17:57)
== END 2020-01-17 18:40 | disposition home or self-care (01) | DRG 885 ==
LOC: EMS 11:12 → 3EI 15:57
PROVIDERS: ADMIT Psychiatry & Neurology Psychiatry; ATTEND Psychiatry & Neurology Psychiatry
DX: F25.0 Schizoaffective disorder, bipolar type (principal); E78.00 Pure hypercholesterolemia, unspecified; E87.6 Hypokalemia; E11.9 Type 2 diabetes mellitus without complications; F17.210 Nicotine dependence, cigarettes, uncomplicated; F12.90 Cannabis use, unspecified, uncomplicated; I10 Essential (primary) hypertension; J45.909 Unspecified asthma, uncomplicated; Z91.14 Patient's other noncompliance with medication regimen
CPT/HCPCS: 83036; 84132; 93005; G0480; J3420

== ENCOUNTER 2020-01-22 21:35 | Inpatient (IN) | payer MEDICAID ==
[~2020-01-22] VITALS: Ht 182.9 cm; Wt 66.7 kg
[~2020-01-22 21:35] MED LIST changes: +AMIT10TA6 PO; +DIVA500T52 PO; -GABA-529 PO; +GABA-531 PO; +HYDR-1475 PO; +LISI-662 PO; +MIRT30 PO; +NALT50TA PO; -QUET200T PO; +QUET200T29 PO
[2020-01-22 22:45] LABS: BASOPHILS % (AUTO) 0.7 % (0.0-2.0); EOSINOPHILS % (AUTO) 0.6 % (1.0-6.0); HEMATOCRIT 36.3 % (36-46); LYMPHOCYTES % (AUTO) 26.7 % (22.0-44.0); MEAN CORPUSCULAR HEMOGLOBIN 26.3 pg (26.0-34.0); MEAN CORPUSCULAR HGB CONC 32.9 G/dL (31.0-37.0); MEAN CORPUSCULAR VOLUME 80 fL (80-100); MONOCYTES # (AUTO) 0.6 K/uL (0.1-1.0); MONOCYTES % (AUTO) 8.2 % (2.0-9.0); NEUTROPHILS # (AUTO) 4.8 K/uL (1.8-7.7); NEUTROPHILS % (AUTO) 63.8 % (40.0-70.0); PLATELET COUNT (AUTO) 276 K/uL (150-450); RED BLOOD CELL COUNT(AUTO) 4.54 MIL/uL (4.00-5.20)
[2020-01-22 22:54] LABS: ANION GAP 7 mmol/L (8-16); CALCIUM, TOTAL 9.4 mg/dL (8.8-10.5); CARBON DIOXIDE 27 mmol/L (22-29); CHLORIDE 102 mmol/L (98-107); CREATININE 1.09 mg/dL (0.60-1.30); GLOMERULAR FILTR. RATE CALC > 60 mL/min (>60); GLUCOSE,RANDOM 96 mg/dL (70-110); POTASSIUM 3.6 mmol/L (3.5-5.1); SODIUM SERUM 136 mmol/L (136-145); UREA NITROGEN, BLOOD 16 mg/dL (7-18)
[2020-01-22 23:08] LABS: ALANINE AMINOTRANSFERASE 32 U/L (12-78); ALBUMIN 4.1 g/dL (3.4-5.0); ALKALINE PHOSPHATASE 99 U/L (46-116); ASPARTATE AMINOTRANSFERASE 31 U/L (15-37); BILIRUBIN,TOTAL 0.6 mg/dL (0.1-1.0); HCG,QUANTITATIVE < 1 mIU/mL (0-6); TOTAL PROTEIN, SERUM 7.6 g/dL (6.4-8.2)
[2020-01-22 23:20] LABS: VALPROIC ACID < 3 mcg/mL (50-100)
[2020-01-23] MEDS ORDERED: ZOLPIDEM TARTRATE 10 MG TABLET PO PRN (00:30)
[2020-01-23 00:33] LABS: AMPHET/METH SCREEN,URINE NEGATIVE (NEGATIVE); BARBITURATE SCREEN, URINE NEGATIVE (NEGATIVE); BENZODIAZEPINES SCREEN,URINE NEGATIVE (NEGATIVE); CANNABINOID SCREEN,URINE NEGATIVE (NEGATIVE); COCAINE SCREEN,URINE NEGATIVE (NEGATIVE); METHADONE SCREEN, URINE NEGATIVE (NEGATIVE); OPIATE SCREEN,URINE NEGATIVE (NEGATIVE); PHENCYCLIDINE SCREEN,URINE NEGATIVE (NEGATIVE)
[2020-01-23] MEDS ORDERED: QUEtiapine FUMARATE 100 MG TABLET PO PRN (00:45)
[2020-01-23] MEDS ORDERED: MIRTAZAPINE 30 MG TABLET PO ONE (00:45)
[2020-01-23] MEDS ORDERED: LISINOPRIL 10 MG TABLET PO ONE (00:45)
[2020-01-23] MEDS ORDERED: HYDROCHLOROTHIAZIDE 25 MG TABLET PO ONE (00:45)
[2020-01-23] MEDS ORDERED: QUEtiapine FUMARATE 100 MG TABLET PO ONE (00:45)
[2020-01-23] MEDS ORDERED: DIVALPROEX SODIUM 500 MG ER TABLET PO ONE (00:45)
[2020-01-23 02:49] VITALS: BP 132/78
[2020-01-23] MEDS ORDERED: INFLUENZA VIRUS VACCINE QVS 2019-20 (3YR+)/PF 60 MCG/0.5 ML SYRINGE IM ONE (03:30)
[2020-01-23 05:32] LABS: APPEARANCE,URINE CLEAR (CLEAR); BILIRUBIN,URINE NEGATIVE (NEGATIVE); GLUCOSE, URINE (UA) NEGATIVE (NEGATIVE); KETONES,URINE TRACE mg/dL (NEGATIVE); LEUKOCYTE ESTERASE ,URINE TRACE (NEGATIVE); NITRATE,URINE NEGATIVE (NEGATIVE); OCCULT BLOOD,URINE NEGATIVE (NEGATIVE); PH,URINE 5.5 (5.0-8.0); PROTEIN,URINE TRACE (NEGATIVE); UROBILINOGEN,URINE 0.2 mg/dL (<=1.0)
[2020-01-23 05:42] LABS: BACTERIA,URINE None Seen /HPF (None Seen); RBC,URINE 0-2 /HPF (0-2); SQUAMOUS EPITHELIAL CELL,UR Few /LPF (None Seen)
[2020-01-23 08:00] VITALS: BP 155/69
[2020-01-23] MEDS ORDERED: FLUCONAZOLE 200 MG TABLET PO ONE (09:15)
[2020-01-23] MEDS: LORazepam 2 MG TABLET PO PRN (10:56)
[2020-01-23] MEDS: MIRTAZAPINE 15 MG TABLET PO SCH (20:33)
[2020-01-23] MEDS: DIVALPROEX SODIUM 500 MG ER TABLET PO SCH (20:33)
[2020-01-23] MEDS: AMITRIPTYLINE HCL 10 MG TABLET PO SCH (20:34)
[2020-01-23] MEDS ORDERED: QUEtiapine FUMARATE 25 MG TABLET PO SCH ×2 (21:00)
[2020-01-24 08:13] LABS: CHOL/HDL RATIO 2.9 (3.9-5.7)
[2020-01-24] MEDS ORDERED: LOPERAMIDE HCL 2 MG CAPSULE PO PRN (14:30)
[2020-01-24] MEDS ORDERED: PROMETHAZINE HCL 25 MG TABLET PO PRN (14:30)
[2020-01-24] MEDS ORDERED: ACETAMINOPHEN 325 MG TABLET PO PRN (14:30)
[2020-01-24] MEDS ORDERED: GuaiFENesin/D-METHORPHAN [SUGAR-FREE] 200-20MG/10 ML SYRUP UDCUP PO PRN (14:30)
[2020-01-24] MEDS ORDERED: HydrOXYzine PAMOATE 50 MG CAPSULE PO PRN (14:30)
[2020-01-24] MEDS ORDERED: MAGNESIUM HYDROXIDE SUSPENSION 30 ML UDCUP PO PRN (14:30)
[2020-01-24] MEDS ORDERED: MAG HYDROX/AL HYDROX/SIMETH ES 30 ML SUSPENSION UDCUP PO PRN (14:30)
[2020-01-24 15:17] VITALS: BP 147/76
[2020-01-24] MEDS: THIAMINE HCL 100 MG TABLET PO SCH (16:28)
[2020-01-24 18:55] VITALS: BP 128/75
[2020-01-24] MEDS: DIVALPROEX SODIUM 500 MG ER TABLET PO SCH (20:13)
[2020-01-24] MEDS: AMITRIPTYLINE HCL 10 MG TABLET PO SCH (20:13)
[2020-01-24] MEDS: MIRTAZAPINE 15 MG TABLET PO SCH (20:13)
[2020-01-24] MEDS: LORazepam 2 MG TABLET PO PRN (20:54)
[2020-01-24] MEDS ORDERED: QUEtiapine FUMARATE 100 MG TABLET PO SCH (21:00)
[2020-01-25] MEDS: MULTIVITAMINS WITH MINERALS, THERAPEUTIC TABLET PO SCH (08:17)
[2020-01-25] MEDS: THIAMINE HCL 100 MG TABLET PO SCH ×2 (08:17→16:10)
[2020-01-25] MEDS: FOLIC ACID 1 MG TABLET PO SCH (08:17)
[2020-01-25] MEDS: NICOTINE 14 MG/24 HOUR PATCH TD SCH (08:18)
[2020-01-25] MEDS: BACITRACIN 28.4 GM OINTMENT TP SCH (16:10)
[2020-01-25 16:40] VITALS: BP 119/69
[2020-01-25] MEDS: GABAPENTIN 300 MG CAPSULE PO SCH ×2 (17:27→21:48)
[2020-01-25] MEDS ORDERED: QUEtiapine FUMARATE 200 MG TABLET PO SCH (21:00)
[2020-01-25] MEDS: DIVALPROEX SODIUM 500 MG ER TABLET PO SCH (21:48)
[2020-01-25] MEDS: AMITRIPTYLINE HCL 10 MG TABLET PO SCH (21:48)
[2020-01-25] MEDS: MIRTAZAPINE 15 MG TABLET PO SCH (21:48)
[2020-01-26] MEDS: GABAPENTIN 300 MG CAPSULE PO SCH ×4 (08:57→20:13)
[2020-01-26] MEDS: MULTIVITAMINS WITH MINERALS, THERAPEUTIC TABLET PO SCH (08:57)
[2020-01-26] MEDS: LORazepam 2 MG TABLET PO PRN (08:57)
[2020-01-26] MEDS: FOLIC ACID 1 MG TABLET PO SCH (08:57)
[2020-01-26] MEDS: THIAMINE HCL 100 MG TABLET PO SCH ×2 (08:58→16:32)
[2020-01-26] MEDS: NICOTINE 14 MG/24 HOUR PATCH TD SCH (09:03)
[2020-01-26 09:46] VITALS: BP 150/86
[2020-01-26] MEDS: BACITRACIN 28.4 GM OINTMENT TP SCH ×2 (12:44→16:33)
[2020-01-26 17:10] VITALS: BP 150/98
[2020-01-26] MEDS: AMITRIPTYLINE HCL 10 MG TABLET PO SCH (20:11)
[2020-01-26] MEDS: QUEtiapine FUMARATE 200 MG TABLET PO SCH (20:12)
[2020-01-26] MEDS: MIRTAZAPINE 15 MG TABLET PO SCH (20:12)
[2020-01-26] MEDS: DIVALPROEX SODIUM 500 MG ER TABLET PO SCH (20:13)
[2020-01-27] MEDS: THIAMINE HCL 100 MG TABLET PO SCH ×2 (08:36→16:25)
[2020-01-27] MEDS: MULTIVITAMINS WITH MINERALS, THERAPEUTIC TABLET PO SCH (08:36)
[2020-01-27] MEDS: GABAPENTIN 300 MG CAPSULE PO SCH ×4 (08:36→21:04)
[2020-01-27] MEDS: BACITRACIN 28.4 GM OINTMENT TP SCH ×2 (08:36→16:25)
[2020-01-27] MEDS: FOLIC ACID 1 MG TABLET PO SCH (08:36)
[2020-01-27] MEDS: NICOTINE 21 MG/24 HOUR PATCH TD SCH (08:38)
[2020-01-27 10:01] VITALS: BP 150/99
[2020-01-27] MEDS: DIVALPROEX SODIUM 500 MG ER TABLET PO SCH (21:04)
[2020-01-27] MEDS: QUEtiapine FUMARATE 200 MG TABLET PO SCH (21:04)
[2020-01-27] MEDS: MIRTAZAPINE 15 MG TABLET PO SCH (21:04)
[2020-01-27] MEDS: AMITRIPTYLINE HCL 10 MG TABLET PO SCH (21:05)
[2020-01-28] MEDS: FOLIC ACID 1 MG TABLET PO SCH (08:31)
[2020-01-28] MEDS: NICOTINE 21 MG/24 HOUR PATCH TD SCH (08:31)
[2020-01-28] MEDS: BACITRACIN 28.4 GM OINTMENT TP SCH ×2 (08:32→16:07)
[2020-01-28] MEDS: MULTIVITAMINS WITH MINERALS, THERAPEUTIC TABLET PO SCH (08:32)
[2020-01-28] MEDS: GABAPENTIN 300 MG CAPSULE PO SCH ×4 (08:32→21:23)
[2020-01-28] MEDS: THIAMINE HCL 100 MG TABLET PO SCH ×2 (08:32→16:07)
[2020-01-28 08:35] VITALS: BP 142/92
[2020-01-28 16:15] VITALS: BP 137/88
[2020-01-28] MEDS: MIRTAZAPINE 15 MG TABLET PO SCH (21:23)
[2020-01-28] MEDS: DIVALPROEX SODIUM 500 MG ER TABLET PO SCH (21:23)
[2020-01-28] MEDS: QUEtiapine FUMARATE 200 MG TABLET PO SCH (21:23)
[2020-01-29] MEDS: GABAPENTIN 300 MG CAPSULE PO SCH ×4 (08:55→20:01)
[2020-01-29] MEDS: FOLIC ACID 1 MG TABLET PO SCH (08:55)
[2020-01-29] MEDS: MULTIVITAMINS WITH MINERALS, THERAPEUTIC TABLET PO SCH (08:55)
[2020-01-29] MEDS: THIAMINE HCL 100 MG TABLET PO SCH ×2 (08:55→16:16)
[2020-01-29] MEDS: NICOTINE 21 MG/24 HOUR PATCH TD SCH (08:56)
[2020-01-29] MEDS: BACITRACIN 28.4 GM OINTMENT TP SCH ×2 (08:56→16:15)
[2020-01-29 09:13] VITALS: BP 145/90
[2020-01-29] MEDS: LORazepam 2 MG TABLET PO PRN ×2 (10:26→16:18)
[2020-01-29 16:22] VITALS: BP 155/80
[2020-01-29] MEDS: QUEtiapine FUMARATE 200 MG TABLET PO SCH (20:00)
[2020-01-29] MEDS: DIVALPROEX SODIUM 500 MG ER TABLET PO SCH (20:01)
[2020-01-29] MEDS ORDERED: MIRTAZAPINE 30 MG TABLET PO SCH (21:00)
[2020-01-29] MEDS: MICONAZOLE NITRATE 2% 45 GM VAGINAL CREAM VG SCH (21:11)
[2020-01-30] MEDS: LORazepam 2 MG TABLET PO PRN ×2 (02:09→10:46)
[2020-01-30 03:24] VITALS: BP 135/70
[2020-01-30] MEDS: MULTIVITAMINS WITH MINERALS, THERAPEUTIC TABLET PO SCH (08:29)
[2020-01-30] MEDS: NICOTINE 21 MG/24 HOUR PATCH TD SCH (08:29)
[2020-01-30] MEDS: THIAMINE HCL 100 MG TABLET PO SCH ×2 (08:29→16:59)
[2020-01-30] MEDS: GABAPENTIN 300 MG CAPSULE PO SCH ×4 (08:29→20:13)
[2020-01-30] MEDS: BACITRACIN 28.4 GM OINTMENT TP SCH ×2 (08:30→17:01)
[2020-01-30] MEDS: FOLIC ACID 1 MG TABLET PO SCH (08:30)
[2020-01-30 08:35] VITALS: BP 150/99
[2020-01-30 19:21] VITALS: BP 127/83
[2020-01-30] MEDS: DIVALPROEX SODIUM 500 MG ER TABLET PO SCH (20:12)
[2020-01-30] MEDS: MIRTAZAPINE 15 MG TABLET PO SCH (20:12)
[2020-01-30] MEDS: QUEtiapine FUMARATE 200 MG TABLET PO SCH (20:14)
[2020-01-30] MEDS: MICONAZOLE NITRATE 2% 45 GM VAGINAL CREAM VG SCH (20:16)
[2020-01-31] MEDS: THIAMINE HCL 100 MG TABLET PO SCH ×2 (08:18→16:05)
[2020-01-31] MEDS: FOLIC ACID 1 MG TABLET PO SCH (08:18)
[2020-01-31] MEDS: GABAPENTIN 300 MG CAPSULE PO SCH ×4 (08:18→20:55)
[2020-01-31] MEDS: MULTIVITAMINS WITH MINERALS, THERAPEUTIC TABLET PO SCH (08:18)
[2020-01-31] MEDS: BACITRACIN 28.4 GM OINTMENT TP SCH ×2 (08:19→16:06)
[2020-01-31] MEDS: NICOTINE 21 MG/24 HOUR PATCH TD SCH (08:19)
[2020-01-31 08:50] VITALS: BP 145/96
[2020-01-31] MEDS: LORazepam 2 MG TABLET PO PRN (08:50)
[2020-01-31 16:28] VITALS: BP 136/88
[2020-01-31] MEDS: MICONAZOLE NITRATE 2% 45 GM VAGINAL CREAM VG SCH (20:54)
[2020-01-31] MEDS: MIRTAZAPINE 15 MG TABLET PO SCH (20:55)
[2020-01-31] MEDS: DIVALPROEX SODIUM 500 MG ER TABLET PO SCH (20:55)
[2020-01-31] MEDS: QUEtiapine FUMARATE 200 MG TABLET PO SCH (20:55)
[2020-02-01] MEDS: LORazepam 2 MG TABLET PO PRN ×3 (06:42→16:21)
[2020-02-01 09:00] VITALS: BP 144/83
[2020-02-01] MEDS: THIAMINE HCL 100 MG TABLET PO SCH ×2 (09:35→16:19)
[2020-02-01] MEDS: NICOTINE 21 MG/24 HOUR PATCH TD SCH (09:35)
[2020-02-01] MEDS: GABAPENTIN 300 MG CAPSULE PO SCH ×4 (09:35→20:59)
[2020-02-01] MEDS: MULTIVITAMINS WITH MINERALS, THERAPEUTIC TABLET PO SCH (09:36)
[2020-02-01] MEDS: BACITRACIN 28.4 GM OINTMENT TP SCH ×2 (09:36→16:19)
[2020-02-01] MEDS: FOLIC ACID 1 MG TABLET PO SCH (09:36)
[2020-02-01 19:04] VITALS: BP 126/84
[2020-02-01] MEDS: MIRTAZAPINE 15 MG TABLET PO SCH (20:59)
[2020-02-01] MEDS: QUEtiapine FUMARATE 200 MG TABLET PO SCH (20:59)
[2020-02-01] MEDS: DIVALPROEX SODIUM 500 MG ER TABLET PO SCH (20:59)
[2020-02-01] MEDS: MICONAZOLE NITRATE 2% 45 GM VAGINAL CREAM VG SCH (21:00)
[2020-02-02 00:25] VITALS: BP 120/85
[2020-02-02] MEDS: MULTIVITAMINS WITH MINERALS, THERAPEUTIC TABLET PO SCH (08:45)
[2020-02-02] MEDS: FOLIC ACID 1 MG TABLET PO SCH (08:45)
[2020-02-02] MEDS: THIAMINE HCL 100 MG TABLET PO SCH ×2 (08:45→16:05)
[2020-02-02] MEDS: GABAPENTIN 300 MG CAPSULE PO SCH ×3 (08:45→16:05)
[2020-02-02] MEDS: NICOTINE 21 MG/24 HOUR PATCH TD SCH (08:49)
[2020-02-02] MEDS: BACITRACIN 28.4 GM OINTMENT TP SCH ×2 (08:50→16:05)
[2020-02-02 09:27] VITALS: BP 118/75
[2020-02-02] MEDS: LORazepam 2 MG TABLET PO PRN (09:51)
[2020-02-02] MEDS ORDERED: MIRT-92 PO (18:17)
[2020-02-02] MEDS ORDERED: QUET200T PO (18:17)
== END 2020-02-02 19:45 | disposition home or self-care (01) | DRG 885 ==
LOC: EMS 21:35 → 3EI 01-23 00:30
PROVIDERS: ADMIT Psychiatry & Neurology Psychiatry; ATTEND Psychiatry & Neurology Psychiatry
DX: F25.0 Schizoaffective disorder, bipolar type (principal); R45.851 Suicidal ideations; B37.3 Candidiasis of vulva and vagina; E78.00 Pure hypercholesterolemia, unspecified; F41.9 Anxiety disorder, unspecified; I10 Essential (primary) hypertension; J45.909 Unspecified asthma, uncomplicated; W18.39XA Other fall on same level, initial encounter; L30.9 Dermatitis, unspecified; F17.210 Nicotine dependence, cigarettes, uncomplicated; S00.531A Contusion of lip, initial encounter; F12.90 Cannabis use, unspecified, uncomplicated; T20.06XA Burn of unspecified degree of forehead and cheek, initial encounter; Z79.899 Other long term (current) drug therapy; Z91.19 Patient's noncompliance with other medical treatment and regimen; Z28.21 Immunization not carried out because of patient refusal; Y93.89 Activity, other specified; Y92.89 Other specified places as the place of occurrence of the external cause; Y99.8 Other external cause status
CPT/HCPCS: 87081; G0480

== ENCOUNTER 2020-09-13 10:26 | Emergency (ER) | payer MEDICAID, OTHER ==
[~2020-09-13] VITALS: Ht 154.9 cm; Wt 68.2 kg
[~2020-09-13 10:26] MED LIST changes: -AMIT10TA6 PO; +DIVA-80 PO; -DIVA500T52 PO; -HYDR-1475 PO; -LISI-662 PO; +MIRT-89 PO; -MIRT30 PO; -NALT50TA PO; +QUET200T PO; -QUET200T29 PO
[2020-09-13] MEDS ORDERED: KETOROLAC TROMETHAMINE 10 MG TABLET PO ONE (12:45)
[2020-09-13 13:13] VITALS: BP 177/97
== END 2020-09-13 13:24 | disposition home or self-care (01) ==
LOC: EMS 10:26
DX: S93.504A Unspecified sprain of right lesser toe(s), initial encounter (principal); J45.909 Unspecified asthma, uncomplicated; F31.9 Bipolar disorder, unspecified; E78.00 Pure hypercholesterolemia, unspecified; F20.9 Schizophrenia, unspecified; I10 Essential (primary) hypertension; F17.210 Nicotine dependence, cigarettes, uncomplicated; F12.90 Cannabis use, unspecified, uncomplicated; W18.40XA Slipping, tripping and stumbling without falling, unspecified, initial encounter; Y93.89 Activity, other specified; Y92.89 Other specified places as the place of occurrence of the external cause; Y99.8 Other external cause status

== ENCOUNTER 2020-12-09 03:18 | Emergency (ER) | payer OTHER ==
[~2020-12-09] VITALS: Ht 182.9 cm; Wt 68.2 kg
[2020-12-09] MEDS ORDERED: IBUPROFEN 600 MG TABLET PO ONE (05:15)
[2020-12-09 06:00] VITALS: BP 127/75
== END 2020-12-09 06:31 | disposition home or self-care (01) ==
LOC: EMS 03:19
DX: S93.401A Sprain of unspecified ligament of right ankle, initial encounter (principal); F20.9 Schizophrenia, unspecified; J45.909 Unspecified asthma, uncomplicated; F31.9 Bipolar disorder, unspecified; I10 Essential (primary) hypertension; E78.00 Pure hypercholesterolemia, unspecified; F17.210 Nicotine dependence, cigarettes, uncomplicated; F12.90 Cannabis use, unspecified, uncomplicated; X50.1XXA Overexertion from prolonged static or awkward postures, initial encounter; Y93.89 Activity, other specified; Y92.89 Other specified places as the place of occurrence of the external cause; Y99.8 Other external cause status

== ENCOUNTER 2021-12-23 20:27 | Emergency (ER) | payer OTHER ==
[~2021-12-23] VITALS: Ht 182.9 cm; Wt 68.2 kg
[2021-12-23] MEDS ORDERED: HYDR12.54 PO (20:34)
[2021-12-23] MEDS ORDERED: CARBAMIDE PEROXIDE 6.5% 15 ML OTIC SOLUTION AU ONE (23:00)
[2021-12-23 23:04] VITALS: BP 114/78
== END 2021-12-23 23:13 | disposition home or self-care (01) ==
LOC: EMS 20:30
DX: H61.23 Impacted cerumen, bilateral (principal); J45.909 Unspecified asthma, uncomplicated; F31.9 Bipolar disorder, unspecified; E78.00 Pure hypercholesterolemia, unspecified; I10 Essential (primary) hypertension; F20.9 Schizophrenia, unspecified; F17.210 Nicotine dependence, cigarettes, uncomplicated; F12.90 Cannabis use, unspecified, uncomplicated
CPT/HCPCS: 99282; Z7502; Z7610

== ENCOUNTER 2022-01-12 00:07 | Emergency (ER) | payer OTHER ==
[~2022-01-12] VITALS: Ht 172.7 cm; Wt 72.0 kg
[~2022-01-12 00:07] MED LIST changes: +HYDR12.54 PO
[2022-01-12 00:27] VITALS: BP 168/99
[2022-01-12] MEDS ORDERED: AMOX TR/POT CLAV 875 MG/125 MG TABLET PO ONE (00:30)
[2022-01-12] MEDS ORDERED: IBUPROFEN 600 MG TABLET PO ONE (00:45)
== END 2022-01-12 00:57 | disposition home or self-care (01) ==
LOC: EMS 00:09
DX: L03.011 Cellulitis of right finger (principal); I10 Essential (primary) hypertension; E78.00 Pure hypercholesterolemia, unspecified; F31.9 Bipolar disorder, unspecified; J45.909 Unspecified asthma, uncomplicated; F12.90 Cannabis use, unspecified, uncomplicated; F17.290 Nicotine dependence, other tobacco product, uncomplicated; Z79.899 Other long term (current) drug therapy
CPT/HCPCS: 99283

== ENCOUNTER 2022-01-14 23:58 | Emergency (ER) | payer OTHER ==
[~2022-01-14] VITALS: Ht 182.9 cm; Wt 68.2 kg
[2022-01-15] MEDS ORDERED: HYDR-4072 PO (00:24)
[2022-01-15] MEDS ORDERED: LIDOCAINE 2% 5 ML JELLY TP ONE (01:45)
[2022-01-15] MEDS ORDERED: CEPH500C3 PO (01:48)
[2022-01-15] MEDS ORDERED: CefTRIAXone SODIUM 1 GM/VIAL IM ONE (02:00)
[2022-01-15] MEDS ORDERED: LIDOCAINE/PF 1% 2 ML VIAL IM ONE (02:00)
[2022-01-15 03:33] VITALS: BP 156/98
[2022-01-15] MEDS ORDERED: ACET-2080 PO (03:44)
== END 2022-01-15 03:59 | disposition home or self-care (01) ==
LOC: EMS 01-15
DX: L03.011 Cellulitis of right finger (principal); I10 Essential (primary) hypertension; E78.00 Pure hypercholesterolemia, unspecified; F20.9 Schizophrenia, unspecified; J45.909 Unspecified asthma, uncomplicated; F12.90 Cannabis use, unspecified, uncomplicated; Z79.899 Other long term (current) drug therapy; Z87.891 Personal history of nicotine dependence
CPT/HCPCS: 10060; 96372; 99283; J0696; J3490

== ENCOUNTER 2022-11-15 21:47 | Emergency (ER) | payer OTHER ==
[~2022-11-15] VITALS: Ht 175.3 cm; Wt 68.2 kg
[~2022-11-15 21:47] MED LIST changes: +CEPH-558 PO; +HYDR-4072 PO
[2022-11-15 21:52] VITALS: BP 181/91
[2022-11-15] MEDS ORDERED: IBUPROFEN 600 MG TABLET PO ONE (22:15)
[2022-11-15] MEDS ORDERED: DOXYCYCLINE HYCLATE 100 MG TABLET PO ONE (22:15)
[2022-11-15] MEDS ORDERED: IBUP-1492 PO (22:17)
[2022-11-15] MEDS ORDERED: DOXY50 PO (22:17)
== END 2022-11-15 22:24 | disposition home or self-care (01) ==
LOC: EMS 21:59
DX: S61.431A Puncture wound without foreign body of right hand, initial encounter (principal); M25.531 Pain in right wrist; J45.909 Unspecified asthma, uncomplicated; E78.00 Pure hypercholesterolemia, unspecified; I10 Essential (primary) hypertension; R73.03 Prediabetes; F31.9 Bipolar disorder, unspecified; F17.210 Nicotine dependence, cigarettes, uncomplicated; F10.20 Alcohol dependence, uncomplicated; F12.90 Cannabis use, unspecified, uncomplicated; F20.9 Schizophrenia, unspecified; X58.XXXA Exposure to other specified factors, initial encounter; Y93.89 Activity, other specified; Y92.89 Other specified places as the place of occurrence of the external cause; Y99.8 Other external cause status
CPT/HCPCS: 99283

== ENCOUNTER 2023-04-29 22:54 | Emergency (ER) | payer OTHER ==
[~2023-04-29] VITALS: Ht 175.3 cm; Wt 68.2 kg
[~2023-04-29 22:54] MED LIST changes: -DIVA-80 PO; +DIVA500T53 PO; +DOXY50 PO; +IBUP-1492 PO
[2023-04-30] MEDS ORDERED: PERTUSS(ACELL),DIPH,TET VAC/PF 0.5 ML SYRINGE IM. ONE (02:00)
[2023-04-30] MEDS ORDERED: SULFAMETHOX/TRIMETH DS 800-160 MG/TABLET PO ONE (02:00)
[2023-04-30 02:11] VITALS: BP 180/95
== END 2023-04-30 02:17 | disposition home or self-care (01) ==
LOC: EMS 22:54
DX: S81.851A Open bite, right lower leg, initial encounter (principal); J45.909 Unspecified asthma, uncomplicated; E78.00 Pure hypercholesterolemia, unspecified; R73.03 Prediabetes; I10 Essential (primary) hypertension; F20.9 Schizophrenia, unspecified; F31.9 Bipolar disorder, unspecified; F17.210 Nicotine dependence, cigarettes, uncomplicated; F12.90 Cannabis use, unspecified, uncomplicated; W54.0XXA Bitten by dog, initial encounter; Y93.89 Activity, other specified; Y92.89 Other specified places as the place of occurrence of the external cause; Y99.8 Other external cause status
CPT/HCPCS: 90471; 90715; 99283